=== PATIENT | male | born 1935 | race Two or more races ===

== ENCOUNTER 2019-11-01 11:18 | Emergency (ER) | payer MEDICARE, OTHER ==
[~2019-11-01] VITALS: Ht 167.6 cm; Wt 81.6 kg
[2019-11-01 11:31] VITALS: BP 150/79
--- NOTE | 2019-11-01 11:53 | NUR ---
ink technician at bedside
[2019-11-01] MEDS ORDERED: HYDROCODONE/APAP 5/325MG 1 EACH TABLET ONE (12:34)
--- NOTE | 2019-11-01 12:42 | NUR ---
family picked up patient. assisted patient to waiting room. Patient discharged to home in stable condition. Written and verbal after care instructions given. Patient verbalizes understanding of instruction.
[2019-11-01] MEDS ORDERED: HYDROCODONE/APAP 5/325MG 1 EACH TABLET PO ONE (13:00)
== END 2019-11-01 12:43 | disposition home or self-care (01) ==
LOC: ER 11:24
DX: S42.291A Other displaced fracture of upper end of right humerus, initial encounter for closed fracture (principal); I10 Essential (primary) hypertension; W18.39XA Other fall on same level, initial encounter; Y93.89 Activity, other specified; Y92.89 Other specified places as the place of occurrence of the external cause; Y99.8 Other external cause status
CPT/HCPCS: 73030-TC